=== PATIENT | male | born 1995 | race Caucasian/White ===

== ENCOUNTER 2016-08-07 20:45 | Emergency (ER) | payer OTHER ==
[2016-08-07 20:49] VITALS: BP 121/77
== END 2016-08-07 21:41 | disposition home or self-care (01) ==
LOC: ED 20:45
DX: H60.92 Unspecified otitis externa, left ear (principal); H66.92 Otitis media, unspecified, left ear; M79.1 Myalgia

== ENCOUNTER 2018-06-26 04:58 | Emergency (ER) | payer OTHER | END 2018-06-26 06:42 | disposition other institution (70) | LOC: ED 04:58 | DX: Z02.89 Encounter for other administrative examinations (principal) ==

== ENCOUNTER 2018-06-26 04:58 | Emergency (ER) | payer OTHER ==
[~2018-06-26] VITALS: Ht 167.6 cm; Wt 77.1 kg
[2018-06-26 05:03] VITALS: Ht 167.6 cm; Wt 77.1 kg
[2018-06-26 06:42] VITALS: BP 117/70
== END 2018-06-26 06:42 | disposition other institution (70) ==
LOC: ED 04:58
DX: S01.511A Laceration without foreign body of lip, initial encounter (principal); S93.401A Sprain of unspecified ligament of right ankle, initial encounter; S20.219A Contusion of unspecified front wall of thorax, initial encounter; V49.9XXA Car occupant (driver) (passenger) injured in unspecified traffic accident, initial encounter; Y93.I9 Activity, other involving external motion; Y92.413 State road as the place of occurrence of the external cause; Y99.8 Other external cause status
CPT/HCPCS: 90715; J2001